=== PATIENT | female | born 1930 | race Two or more races ===

== ENCOUNTER 2018-09-15 14:41 | Emergency (ER) | payer OTHER ==
[~2018-09-15] VITALS: Ht 157.5 cm; Wt 70.3 kg
[2018-09-15] MEDS ORDERED: NEURONTIN600 MG (15:25)
[2018-09-15] MEDS ORDERED: ATIVAN2 M1 (15:25)
[2018-09-15] MEDS ORDERED: GLUMETZA500 MG (15:25)
== END 2018-09-15 18:39 | disposition home or self-care (01) ==
LOC: ER 14:41
DX: R60.0 Localized edema (principal)